=== PATIENT | male | born 1975 | race African-American/Black ===

== ENCOUNTER 2017-06-21 12:52 | Emergency (ER) | payer SELFPAY | END 2017-06-21 13:53 | disposition left against medical advice (07) | LOC: ER 12:52 | DX: M54.9 Dorsalgia, unspecified (principal); Z53.21 Procedure and treatment not carried out due to patient leaving prior to being seen by health care provider ==

== ENCOUNTER 2021-01-15 18:45 | Emergency (ER) | payer SELFPAY ==
[~2021-01-15] VITALS: Ht 185.4 cm; Wt 78.9 kg
[2021-01-15] MEDS ORDERED: HYDROcodone-ACET 7.5/325MG TAB PO ONE (20:00)
[2021-01-15 21:00] VITALS: BP 120/68
== END 2021-01-15 21:40 | disposition home or self-care (01) ==
LOC: ER 18:45
DX: S22.42XA Multiple fractures of ribs, left side, initial encounter for closed fracture (principal); R51.9 Headache, unspecified; M79.631 Pain in right forearm; F17.210 Nicotine dependence, cigarettes, uncomplicated; Y08.89XA Assault by other specified means, initial encounter; Y93.89 Activity, other specified; Y92.89 Other specified places as the place of occurrence of the external cause; Y99.8 Other external cause status
CPT/HCPCS: 36415; 70450; 71250; 72125; 73090; 73120; 74176; 80320